=== PATIENT | male | born 1940 | race Caucasian/White ===

== ENCOUNTER → 2017-01-29 | Outpatient (CLI) | payer MEDICARE, OTHER | LOC: MW.CHUR 11:44 | PROVIDERS: ATTEND Urology | DX: R97.20 Elevated prostate specific antigen [PSA] (principal); N40.0 Benign prostatic hyperplasia without lower urinary tract symptoms | CPT/HCPCS: 36415; 84153; G0463 ==

== ENCOUNTER 2018-06-04 10:35 | Emergency (ER) | payer MEDICARE, OTHER ==
--- NOTE | 2018-06-04 11:08 | EDM.PDOC ---
ED HPI GENERAL MEDICAL PROBLEM - General Chief Complaint: Back Pain or Injury Stated Complaint: LOWER BACK PAIN Time Seen by Provider: 06/04/18 11:05 Source of Information: Reports: Patient History Limitations: Reports: No Limitations - History of Present Illness INITIAL COMMENTS - FREE TEXT/NARRATIVE: HISTORY AND PHYSICAL: History of present illness: Patient is a 77-year-old male here with complaint of low back pain started yesterday. He states that the pain comes and goes and today has been worse than yesterday. He stated he did have a little bit of radiation of pain down his left leg. He states the pain is worse when he takes a deep breath and when he goes to stand up. He denies any saddle anesthesia, loss of bowel or bladder control, foot drop. He denies any injury or trauma to the back. He denies any dysuria, hematuria, fevers, chills. He has no history of kidney stones. He has not taken anything for his pain. Review of systems: As per history of present illness and below otherwise all systems reviewed and negative. Past medical history: As per history of present illness and as reviewed below otherwise noncontributory. Surgical history: As per history of present illness and as reviewed below otherwise noncontributory. Social history: No reported history of drug or alcohol abuse. Family history: As per history of present illness and as reviewed below otherwise noncontributory. Physical exam: General: Patient sitting comfortably in no acute distress HEENT: Atraumatic, normocephalic, pupils reactive, negative for conjunctival pallor or scleral icterus, mucous membranes moist, throat clear, neck supple, nontender, trachea midline. Lungs: Clear to auscultation, breath sounds equal bilaterally, chest nontender. Heart: S1S2, regular, negative for clicks, rubs, or JVD. Abdomen: Soft, nondistended, nontender. Negative for masses or hepatosplenomegaly. Negative for costovertebral tenderness. Pelvis: Stable nontender. Genitourinary: Deferred. Rectal: Deferred. Spine: Pain to palpation of left SI joint. Extremities: Atraumatic, negative for cords or calf pain. Neurovascular unremarkable. Neuro: Awake, alert, oriented. Cranial nerves II through XII unremarkable. Cerebellum unremarkable. Motor and sensory unremarkable throughout. Exam nonfocal. Notes: Diagnostics: UA Declines x-ray Therapeutics: Toradol 60mg IM Impression: Lumbar back pain Plan: 1. Ice or heat and do gentle stretches as instructed. Take diclofenac as needed , flexeril at bedtime. Do not take flexeril if driving as it may make you drowsy. 2. Follow up with primary care provider 3. Return to ED as needed as discussed Definitive disposition and diagnosis as appropriate pending reevaluation and review of above. Left Flank Pain Score (Numeric/FACES): 10 - Related Data Allergies Allergy/AdvReac Type Severity Reaction Status Date / Time No Known Allergies Allergy Verified 02/08/14 16:44 Home Meds: Home Meds Aspirin [Halfprin] 81 mg PO DAILY 02/08/14 [History] Calcium Carbonate [Calcium] 1,000 mg PO DAILY 02/08/14 [History] Gluc HCl/Csa/Toni Hy/Hyalur Ac [Glucosamine Chondroitin] 2 each PO DAILY [History] Multivitamins [Tab-A-Odalys] 1 each PO DAILY 02/08/14 [History] [place] 450 mg PO DAILY 02/08/14 [History] Cyclobenzaprine [Flexeril] 10 mg PO BEDTIME #10 tab 06/04/18 [Rx] Diclofenac Sodium [Voltaren] 75 mg PO BIDMEALS #20 tab.cr 06/04/18 [Rx] Lovastatin 40 mg ASDIRECTED 06/04/18 [History] [place]-3/DHA/Epa/Fish Oil [[place]-3 EC Softgel] 1 tab DAILY 06/04/18 [History] ED ROS GENERAL - Review of Systems Review Of Systems: ROS reveals no pertinent complaints other than HPI. ED EXAM,LOWER BACK PAIN/INJURY - Physical Exam Exam: See Below (see dictation) Course - Vital Signs Last Recorded V/S: Last Vital Signs Temp 36.5 C 06/04/18 10:55 Pulse 82 06/04/18 10:55 Resp 18 06/04/18 10:55 BP 142/83 H 06/04/18 10:55 Pulse Ox 97 06/04/18 10:55 - Orders/Labs/Meds Orders: Active Orders 24 hr Category Date Time Status UA W/MICROSCOPIC [URIN] Stat Lab 06/04/18 12:23 Ordered Ketorolac [Toradol] Med 06/04/18 12:42 Once 60 mg IM ONETIME ONE Labs: Laboratory Tests 06/04/18 Range/Units 12:23 Urine Color YELLOW Urine Appearance CLEAR Urine pH 5.5 (5.0-8.0) Ur Specific [place] >= 1.030 (1.001-1.035) Urine Protein TRACE (NEGATIVE) mg/dL Urine Glucose (UA) NEGATIVE (NEGATIVE) mg/dL Urine Ketones NEGATIVE (NEGATIVE) mg/dL Urine Occult Blood NEGATIVE (NEGATIVE) Urine Nitrite NEGATIVE (NEGATIVE) Urine Bilirubin NEGATIVE (NEGATIVE) Urine Urobilinogen 0.2 (<2.0) EU/dL Ur Leukocyte Esterase NEGATIVE (NEGATIVE) Urine RBC 0-2 (0-2/HPF) Urine WBC 0-2 (0-5/HPF) Ur Epithelial Cells RARE (NONE-FEW) Urine Bacteria RARE (NEGATIVE) Departure - Departure Time of Disposition: 12:44 Disposition: Home, Self-Care 01 Condition: Good Clinical Impression: Lumbar back pain - Discharge Information Prescriptions: Cyclobenzaprine [Flexeril] 10 mg PO BEDTIME #10 tab Diclofenac Sodium [Voltaren] 75 mg PO BIDMEALS #20 tab.cr Referrals: Reggie Brumfield MD [Primary Care Provider] - Forms: ED Department Discharge Additional Instructions: The following information is given to patients seen in the emergency department who are being discharged to home. This information is to outline your options for follow-up care. We provide all patients seen in our emergency department with a follow-up referral. The need for follow-up, as well as the timing and circumstances, are variable depending upon the specifics of your emergency department visit. If you don't have a primary care physician on staff, we will provide you with a referral. We always advise you to contact your personal physician following an emergency department visit to inform them of the circumstance of the visit and for follow-up with them and/or the need for any referrals to a consulting specialist. The emergency department will also refer you to a specialist when appropriate. This referral assures that you have the opportunity for follow-up care with a specialist. All of these measure are taken in an effort to provide you with optimal care, which includes your follow-up. Under all circumstances we always encourage you to contact your private physician who remains a resource for coordinating your care. When calling for follow-up care, please make the office aware that this follow-up is from your recent emergency room visit. If for any reason you are refused follow-up, please contact the [facility] Emergency Department at and asked to speak to the emergency department charge nurse. [facility] [address] [place] [address] [address] 1. Ice or heat and do gentle stretches as instructed. Take diclofenac as needed , flexeril at bedtime. You may take tylenol as needed as well, no additional NSAIDs while taking diclofenac. Do not take flexeril if driving as it may make you drowsy. 2. Follow up with primary care provider 3. Return to ED as needed as discussed - My Orders Last 24 Hours: My Active Orders 06/04/18 12:23 UA W/MICROSCOPIC [URIN] Stat 06/04/18 12:42 Ketorolac [Toradol] 60 mg IM ONETIME ONE - Assessment/Plan Last 24 Hours: My Active Orders 06/04/18 12:23 UA W/MICROSCOPIC [URIN] Stat 06/04/18 12:42 Ketorolac [Toradol] 60 mg IM ONETIME ONE
[2018-06-04] MEDS ORDERED: Ketorolac 60 MG/2 ML SDV IM ONE (12:42)
== END 2018-06-04 13:33 | disposition home or self-care (01) ==
LOC: MW.ED 10:35
DX: M54.5 Low back pain (principal); Z79.82 Long term (current) use of aspirin; Z79.899 Other long term (current) drug therapy
CPT/HCPCS: 81001; 96372; 99283; J1885